=== PATIENT | female | born 1995 | race Caucasian/White ===

== ENCOUNTER 2022-02-27 10:30 | Emergency (ER) | payer OTHER ==
[~2022-02-27] VITALS: Ht 157.5 cm; Wt 68.0 kg
--- NOTE | 2022-02-27 10:35 | NUR ---
MD at bedside, medical screening exam in progress.
[2022-02-27] MEDS ORDERED: ONDANSETRON ODT 4 MG TAB.RAPDIS SL ONE (11:00)
[2022-02-27] MEDS ORDERED: ACETAMINOPHEN 325 MG TABLET PO ONE (11:00)
[2022-02-27] MEDS ORDERED: ONDANSETRON ODT 4 MG TAB.RAPDIS ONE (11:05)
[2022-02-27] MEDS ORDERED: ACETAMINOPHEN 325 MG TABLET ONE (11:05)
[2022-02-27 11:13] LABS: HEMATOCRIT 38.3 % (31.2-41.9); MEAN CORPUSCULAR HEMOGLOBIN 30.5 uug (24.7-32.8); MEAN CORPUSCULAR VOLUME 88.9 fL (75.5-95.3); PLATELET COUNT (AUTO) 247 K/uL (179-408)
[2022-02-27 11:14] LABS: *BILIRUBIN,URIN NEGATIVE (NEGATIVE); *BLOOD, URINE NEGATIVE (NEGATIVE); *CLARITY,URINE CLEAR (CLEAR); *COLOR,URINE YELLOW (YELLOW); *KETONES,URINE TRACE (NEGATIVE); LEUKOCYTE ESTERASE ,URINE NEGATIVE (NEGATIVE); NITRITE, URINE NEGATIVE (NEGATIVE); PH,URINE 7.5 (5.0-8.0); UGLUCOSE NEGATIVE (NEGATIVE)
[2022-02-27 11:16] LABS: CREATININE 0.9 mg/dL (0.6-1.3)
[2022-02-27 11:19] LABS: *URINE HCG, QUAL NEGATIVE (NEGATIVE)
[2022-02-27 11:21] LABS: BILIRUBIN,TOTAL 0.3 mg/dL (0.2-1.0); TOTAL PROTEIN, SERUM 7.5 g/dL (6.4-8.2)
[2022-02-27] MEDS ORDERED: IBUPROFEN 600 MG TABLET PO ONE (11:30)
[2022-02-27 11:45] LABS: RBC,URINE 0-3 /HPF (0-3); WBC,URINE 0-3 /HPF (0-3)
[2022-02-27 11:46] LABS: BACTERIA,URINE MODERATE /HPF (NONE SEEN); SQUAMOUS EPITHELIAL CELL,UR MODERATE /HPF (NONE SEEN)
--- NOTE | 2022-02-27 12:05 | NUR ---
Pt states pain is down from 6/10 to 4/10. Nausea has resolved.
[2022-02-27] MEDS ORDERED: IBUPROFEN 600 MG TABLET ONE (12:52)
[2022-02-27 12:54] LABS: BAND % (MANUAL) 1 % (0-10); EOSINOPHILS % (MANUAL) 1 % (0-8); LYMPHOCYTES % (MANUAL) 12 % (20-40); MONOCYTES % (MANUAL) 14 % (2-10); NEUTROPHILS % (MANUAL) 72 % (42-75)
--- NOTE | 2022-02-27 13:33 | NUR ---
States that pain and nausea are both gone.
[2022-02-27] MEDS ORDERED: ONDA4TAB11 PO (16:35)
[2022-02-27] MEDS ORDERED: AMOX-430 PO (16:35)
--- NOTE | 2022-02-27 16:40 | NUR ---
Gave pt RX and d/c instructions, pt verbalized understanding.
== END 2022-02-27 16:50 | disposition home or self-care (01) ==
LOC: ER 10:30
DX: R10.32 Left lower quadrant pain (principal); Z85.830 Personal history of malignant neoplasm of bone
CPT/HCPCS: 36415; 70030-TC; 83690; 84703; 85025; 87086; A4663; Q0162

== ENCOUNTER 2022-08-20 14:43 | Emergency (ER) | payer OTHER ==
[~2022-08-20] VITALS: Ht 157.5 cm; Wt 68.0 kg
[~2022-08-20 14:43] MED LIST: AMOX-430 PO; ONDA4TAB11 PO
[2022-08-20] MEDS ORDERED: MORPHINE SULFATE 4 MG/1 ML DISP.SYRIN ONE (16:30)
[2022-08-20] MEDS ORDERED: ONDANSETRON 4 MG/2 ML VIAL IV ONE (16:30)
[2022-08-20] MEDS ORDERED: MORPHINE SULFATE 4 MG/1 ML DISP.SYRIN IV ONE (16:30)
[2022-08-20] MEDS ORDERED: ONDANSETRON 4 MG/2 ML VIAL ONE (16:31)
--- NOTE | 2022-08-20 16:45 | NUR ---
PT IS IN ROOM #1A. DR RAINES EVALUATED THE PT.
--- NOTE | 2022-08-20 18:04 | NUR ---
PT WAS D/C'd TO HOME. D/C INSTRUCTIONS GIVEN TO THE PT BY DR RAINES.
[2022-08-20 18:12] VITALS: BP 126/69
== END 2022-08-20 18:14 | disposition home or self-care (01) ==
LOC: ER 14:43
DX: Z46.82 Encounter for fitting and adjustment of non-vascular catheter (principal); Z90.13 Acquired absence of bilateral breasts and nipples; C50.919 Malignant neoplasm of unspecified site of unspecified female breast; Z85.830 Personal history of malignant neoplasm of bone; Z88.8 Allergy status to other drugs, medicaments and biological substances
CPT/HCPCS: 99284; 96374; 96375; J2405; J2270; A4663